=== PATIENT | male | born 1975 | race Caucasian/White ===

== ENCOUNTER → 2017-07-14 | Outpatient (REF) | LOC: M SMT 10:50 | DX: Z02.71 Encounter for disability determination (principal); R93.7 Abnormal findings on diagnostic imaging of other parts of musculoskeletal system ==

== ENCOUNTER 2020-02-10 09:50 | Emergency (ER) | payer OTHER ==
[~2020-02-10 09:50] MED LIST: CELE50CA PO; DOXY75CA3 PO; DULC5TAB PO; HYDR10T PO; LAMI1TAB8 PO; MINI2CAP PO; NEXI1CAP3 PO; SERO1TAB3 PO; SILD50TA PO; TRAZ1TAB25 PO; TRAZ50TA2 PO; VENL75CA PO; ZOLO100T PO
[2020-03-28 11:48] LABS: APPEARANCE, URINE HAZY (CLEAR); BACTERIA, URINE AUTO NEGATIVE (NEGATIVE); BILIRUBIN, URINE AUTO NEGATIVE (NEGATIVE); BLOOD, URINE BLOOD NEGATIVE (NEGATIVE); COLOR, URINE YELLOW (YELLOW); GLUCOSE, URINE (UA) AUTO NEGATIVE (NEGATIVE); KETONE, URINE AUTO NEGATIVE (NEGATIVE); LEUKOCYTE ESTERASE, URINE AUTO NEGATIVE (NEGATIVE); MUCUS, URINE SMALL (NEGATIVE); NITRITE, URINE AUTO NEGATIVE (NEGATIVE); PROTEIN, URINE AUTO NEGATIVE (NEGATIVE); RBC, URINE AUTO 1 /HPF (0-3); SPECIFIC GRAVITY URINE AUTO 1.031 (1.002-1.035); SQUAMOUS EPITHELIAL CELL UR AU 0 /HPF (0-6); UROBILINOGEN, URINE AUTO 0.2 mg/dL (0.0-2.0); WBC, URINE AUTO 1 /HPF (0-3)
== END 2020-02-10 13:40 | disposition home or self-care (01) ==
LOC: M ED 09:50
DX: S30.0XXA Contusion of lower back and pelvis, initial encounter (principal); W01.0XXA Fall on same level from slipping, tripping and stumbling without subsequent striking against object, initial encounter; Y92.9 Unspecified place or not applicable; N52.9 Male erectile dysfunction, unspecified; Z79.83 Long term (current) use of bisphosphonates

== ENCOUNTER 2021-02-17 13:25 | Emergency (ER) | payer MEDICARE, OTHER ==
[~2021-02-17] VITALS: Ht 175.3 cm; Wt 97.7 kg
[2021-02-17] MEDS ORDERED: BOOSTRIX/ADACEL VACCINE (DIPHTH/PERTUSS/ACELL/TETANUS) 0.5ML SYR IM ONE (16:15)
[2021-02-17] MEDS ORDERED: LIDOCAINE 2% MDV 20ML VIAL SC ONE (16:15)
[2021-02-17] MEDS ORDERED: NEOSPORIN OINT 0.9 GM PKT TOP ONE (16:35)
[2021-02-17 16:43] VITALS: BP 144/88
== END 2021-02-17 16:51 | disposition home or self-care (01) ==
LOC: M ED 13:25
DX: S61.211A Laceration without foreign body of left index finger without damage to nail, initial encounter (principal); W26.8XXA Contact with other sharp object(s), not elsewhere classified, initial encounter; Y92.018 Other place in single-family (private) house as the place of occurrence of the external cause; K21.9 Gastro-esophageal reflux disease without esophagitis; Z79.899 Other long term (current) drug therapy

== ENCOUNTER → 2022-08-25 | Outpatient (CLI) | payer MEDICARE, OTHER ==
[~2022-08-25] MED LIST changes: +OMEP40CA4 PO; +TIZA10TA
== END ==
LOC: M LABSMTC 10:56
PROVIDERS: ATTEND Anesthesiology
DX: Z01.812 Encounter for preprocedural laboratory examination (principal); Z11.52 Encounter for screening for COVID-19

== ENCOUNTER 2022-08-27 07:09 | Day surgery (SDC) | payer MEDICARE, OTHER ==
[~2022-08-27] VITALS: Ht 175.3 cm; Wt 97.9 kg
[~2022-08-27 07:09] MED LIST changes: +NS 1,000 ML IV ONE
[2022-08-27] MEDS ORDERED: propofoL 200 MG/20 ML VIAL As Ordered ONE ×2 (08:28→08:48)
[2022-08-27] MEDS ORDERED: LIDOCAINE 2% 100MG/5ML SDV (FOR ANES.) As Ordered ONE (08:28)
[2022-08-27] MEDS ORDERED: fentaNYL 100 MCG/2 ML INJECTION As Ordered ONE (08:28)
[2022-08-27 09:30] VITALS: BP 107/72
== END 2022-08-27 09:35 | disposition home or self-care (01) ==
LOC: M OPP 07:09
PROVIDERS: ATTEND Surgery
DX: K59.00 Constipation, unspecified (principal); K29.80 Duodenitis without bleeding; F32.9 Major depressive disorder, single episode, unspecified; F41.9 Anxiety disorder, unspecified; F43.10 Post-traumatic stress disorder, unspecified; G47.33 Obstructive sleep apnea (adult) (pediatric); Z99.89 Dependence on other enabling machines and devices; Z79.899 Other long term (current) drug therapy; F17.220 Nicotine dependence, chewing tobacco, uncomplicated
CPT/HCPCS: 43239; 45378; 88305; J3010

== ENCOUNTER → 2022-12-29 | Outpatient (CLI) | payer OTHER ==
[~2022-12-29] MED LIST changes: -NS 1,000 ML IV ONE
[2022-12-29 17:22] LABS: HEMATOCRIT 45.3 % (42.0-52.0); HEMOGLOBIN 15.7 g/dl (13.5-17.5); MEAN CORPUSCULAR HEMOGLOBIN 30.1 pg (27.0-33.0); MEAN CORPUSCULAR HGB CONC 34.7 g/dl (32.0-36.5); MEAN CORPUSCULAR VOLUME 86.9 fl (80.0-96.0); PLATELET COUNT, AUTOMATED 271 10^3/uL (150-450); RED BLOOD COUNT 5.21 10^6/uL (4.30-6.10); WHITE BLOOD COUNT 8.5 10^3/uL (4.0-10.0)
[2022-12-29 17:29] LABS: INR 0.95; PROTHROMBIN TIME 12.9 SECONDS (12.5-14.5)
[2022-12-29 17:30] LABS: PARTIAL THROMBOPLASTIN TIME 32.7 SECONDS (24.8-34.2)
[2022-12-29 18:08] LABS: BLOOD UREA NITROGEN 16 MG/DL (9-23); CALCIUM LEVEL 8.7 MG/DL (8.5-10.1); CARBON DIOXIDE LEVEL 28 MMOL/L (20-31); CHLORIDE LEVEL 104 MMOL/L (98-107); CREATININE FOR GFR 1.07 MG/DL (0.70-1.30); GLOMERULAR FILTRATION RATE > 60.0 (>60); GLUCOSE, FASTING 88 MG/DL (60-100); POTASSIUM SERUM 4.1 MMOL/L (3.5-5.1); SODIUM LEVEL 139 MMOL/L (136-145)
== END ==
LOC: M PLALAB 15:03
PROVIDERS: ATTEND Urology
DX: Z01.818 Encounter for other preprocedural examination (principal); N48.6 Induration penis plastica

== ENCOUNTER 2023-02-12 08:41 | Day surgery (SDC) | payer OTHER ==
[~2023-02-12] VITALS: Ht 175.3 cm; Wt 95.5 kg
[~2023-02-12 08:41] MED LIST changes: +TRIA0.022; +ceFAZolin SOD 2 GM in IV 1 EA IV ONE
[2023-02-12] MEDS ORDERED: INSULIN LISPRO (NovoLOG) PER UNIT SC PRN (09:05)
[2023-02-12] MEDS ORDERED: LR 1,000 ML IV SCH ×2 (09:05→13:30)
[2023-02-12] MEDS ORDERED: MIDAZOLAM INJ 2MG/2ML VIAL As Ordered ONE (10:11)
[2023-02-12] MEDS ORDERED: fentaNYL 100 MCG/2 ML INJECTION As Ordered ONE (10:11)
[2023-02-12] MEDS ORDERED: LIDOCAINE 2% 100MG/5ML SDV (FOR ANES.) As Ordered ONE (10:12)
[2023-02-12] MEDS ORDERED: propofoL 200 MG/20 ML VIAL As Ordered ONE (10:12)
[2023-02-12] MEDS ORDERED: ONDANSETRON 4MG 2ML VIAL As Ordered ONE (10:12)
[2023-02-12] MEDS ORDERED: KETOROLAC 60MG 2ML VIAL As Ordered ONE (10:12)
[2023-02-12] MEDS ORDERED: BACITRACIN OINTMENT 30GM TUBE As Ordered ONE (10:18)
[2023-02-12] MEDS ORDERED: ACETAMINOPHEN 1000MG 100ML IV BAG As Ordered ONE (11:10)
[2023-02-12] MEDS ORDERED: ePHEDrine SULFATE 25 MG/5 ML(5MG/ML) SYRINGE As Ordered ONE (11:25)
[2023-02-12] MEDS ORDERED: GLYCOPYRROLATE INJ 0.2 MG/ML 2 ML VIAL As Ordered ONE (11:27)
[2023-02-12] MEDS ORDERED: HYDROMORPHONE HCL 0.5 MG/ 0.5 ML SYRINGE IV PRN (13:30)
[2023-02-12] MEDS ORDERED: fentaNYL 100 MCG/2 ML INJECTION IV PRN (13:30)
[2023-02-12] MEDS ORDERED: ONDANSETRON 4MG 2ML VIAL IV PRN (13:30)
[2023-02-12] MEDS: oxyCODONE 5MG TAB PO PRN ×2 (14:05→14:37)
[2023-02-12] MEDS ORDERED: VALI5TAB PO (14:08)
[2023-02-12] MEDS ORDERED: OXYC1TAB23 PO (14:08)
[2023-02-12 15:12] VITALS: BP 142/84; TEMP 97.1; O2SAT 100
== END 2023-02-12 15:20 | disposition home or self-care (01) ==
LOC: M SDC 08:41
PROVIDERS: ATTEND Urology
DX: N48.6 Induration penis plastica (principal); G47.30 Sleep apnea, unspecified; F17.220 Nicotine dependence, chewing tobacco, uncomplicated; Z91.09 Other allergy status, other than to drugs and biological substances; Z79.899 Other long term (current) drug therapy
CPT/HCPCS: 54360; J0131; J0690; J1100; J1885; J2250; J2405; J3010

== ENCOUNTER → 2024-07-24 | Outpatient (CLI) | payer OTHER ==
[~2024-07-24] MED LIST changes: +OXYC1TAB23 PO; +VALI5TAB PO; -ceFAZolin SOD 2 GM in IV 1 EA IV ONE
== END ==
LOC: M PLAIMG 06:38
PROVIDERS: ATTEND Pain Medicine Interventional Pain Medicine
DX: M54.16 Radiculopathy, lumbar region (principal)

== ENCOUNTER → 2025-03-29 | Outpatient (CLI) | payer OTHER | LOC: M SLEEP 20:00 | PROVIDERS: ATTEND Internal Medicine | DX: G47.33 Obstructive sleep apnea (adult) (pediatric) (principal) ==